=== PATIENT | male | born 1960 | race Two or more races ===

== ENCOUNTER 2017-07-15 07:32 | Emergency (ER) | payer OTHER ==
[~2017-07-15] VITALS: Ht 180.3 cm; Wt 154.2 kg
[~2017-07-15 07:32] MED LIST: CEPHALEXIN500 MG PO; INTESTINEX1 CA1 PO; TAMS0.4C PO
[2017-07-15] MEDS ORDERED: METFORMIN HCL500 MG (07:49)
[2017-07-15] MEDS ORDERED: IBUPROFEN800 MG PO (11:06)
== END 2017-07-15 12:23 | disposition home or self-care (01) ==
LOC: ER 07:32
DX: S50.812A Abrasion of left forearm, initial encounter (principal); S30.0XXA Contusion of lower back and pelvis, initial encounter; W01.0XXA Fall on same level from slipping, tripping and stumbling without subsequent striking against object, initial encounter; Y93.89 Activity, other specified; Y92.091 Bathroom in other non-institutional residence as the place of occurrence of the external cause; Y99.8 Other external cause status

== ENCOUNTER 2019-07-03 10:27 | Outpatient (CLI) | payer OTHER ==
[~2019-07-03 10:27] MED LIST changes: +IBUPROFEN800 MG PO; +METFORMIN HCL500 MG
== END 2019-07-03 11:00 | disposition home or self-care (01) ==
LOC: RAD 10:27
DX: M54.5 Low back pain (principal)

== ENCOUNTER 2021-03-11 10:01 | Outpatient (CLI) | payer OTHER | END 2021-03-11 10:07 | disposition home or self-care (01) | LOC: RAD 10:01 | DX: S33.8XXA Sprain of other parts of lumbar spine and pelvis, initial encounter (principal) ==

== ENCOUNTER → 2021-11-25 | Emergency (ER) | payer OTHER ==
[~2021-11-25] VITALS: Ht 180.3 cm; Wt 126.1 kg
[~2021-11-25] MED LIST changes: +ABILIFY2 MG PO; +PROSCAR5 MG PO; +PROZAC10 MG PO; +RESTORIL15 M1 PO
== END | disposition home or self-care (01) ==
LOC: ER 07:37
DX: K29.70 Gastritis, unspecified, without bleeding (principal); K29.80 Duodenitis without bleeding; E11.9 Type 2 diabetes mellitus without complications; Z79.84 Long term (current) use of oral hypoglycemic drugs